=== PATIENT | female | born 1940 | race Caucasian/White ===

== ENCOUNTER → 2021-12-16 | Outpatient (REF) | payer SELFPAY ==
[2021-12-16 07:21] LABS: Mucous, Urine 0 SEEN /hpf (<or=2+)
[2021-12-16 08:01] LABS: Color, Urine Yellow (Yellow); Glucose, Dipstick Normal (Normal); Ketone-Dipstick 5 mg/dl (Negative); Leukocyte Esterase-Dipstick 500 /ul (Negative); Nitrite-Dipstick Negative (Negative); Occult Blood-Urine 250 /ul (Negative); Protein-Dipstick 100 mg/dl (Negative); Specific Gravity, Urine 1.025 (1.002-1.030); Urine Clarity Turbid (Clear); Urine Urobilinogen 1 mg/dl (Normal)
[2021-12-16 08:03] LABS: Urine Bilirubin Dipstick 1 mg/dL (Negative)
[2021-12-16 08:14] LABS: Bacteria 3+ /hpf (None Seen); Red Blood Cells-Urine 25-50 SEEN /hpf (0-5); Squamous Epithelial Cells - UA 0-5 SEEN /hpf (5-10); White Blood Cells 25-50 SEEN /hpf (0-5)
== END | disposition home or self-care (01) ==
LOC: OLS.SW400 03:00
PROVIDERS: Referring Provider Internal Medicine; Visit Provider Internal Medicine
DX: N39.0 Urinary tract infection, site not specified (principal)
CPT/HCPCS: 81001; 87077; 87086; 87088; 87186

== ENCOUNTER → 2021-12-17 | Outpatient (REF) | payer SELFPAY ==
[2021-12-17 08:44] LABS: Absolute Lymphocyte Count 1.19 X10^3/uL (0.83-4.51); Basophil# 0.05 X10^3/uL; Basophil% 0.7 % (0-1); Eosinophil# 0.36 X10^3/uL; Hematocrit 37.1 % (37-47); Lymphocyte # 1.19 X10^3/ul (0.83-4.51); Lymphocyte % 16.6 % (19-41); Mean Corp Hgb Conc 32.3 g/dL (32-36); Mean Corpuscular Hgb 30.2 pg (27.0-32.0); Mean Corpuscular Volume 93.5 fL (81-99); Mean Platelet Vol. 10.7 fl (6.2-12.0); Monocyte# 0.57 X10^3/uL; Monocyte% 7.9 % (0-10); NRBC Flagged by Analyzer 0 % (0-5); Neutrophil # 4.95 X10^3/uL (2.7-7.7); Neutrophil % 69.1 % (47-70); Platelet Count 177 K/mm3 (150-450); RBC Distribution Width CV 16.1 % (11.6-14.6); RBC Distribution Width SD 55.8 fl (35.1-43.9); Red Blood Count 3.97 M/mm3 (4.2-5.4); White Blood Count 7.2 K/mm3 (4.4-11.0)
[2021-12-17 08:56] LABS: Vitamin B12 206 pg/mL (211-911); Vitamin D,25 Hydroxy 10.3 ng/mL
[2021-12-17 09:04] LABS: Anion Gap 3 (5-15); BUN 14 mg/dL (7-18); BUN/Creat Ratio 16.1 RATIO (10-20); Calcium,Total 8.7 mg/dL (8.5-10.1); Chloride 109 mmol/L (98-107); Creatinine, Serum 0.87 mg/dL (0.55-1.02); EST Glomerular Filtration Rate 66 mL/min (>60); Est Glom Filt Rate - Afr Amer 80 mL/min (>60); Glucose 86 mg/dL (74-106); Potassium 3.9 mmol/L (3.5-5.1); Sodium Level 141 mmol/L (136-145); Thyroid Stim Hormone (TSH) 0.67 uIU/mL (0.358-3.74)
== END | disposition home or self-care (01) ==
LOC: OLS.SW400 05:00
PROVIDERS: Visit Provider Internal Medicine
DX: I10 Essential (primary) hypertension (principal); F03.90 Unspecified dementia, unspecified severity, without behavioral disturbance, psychotic disturbance, mood disturbance, and anxiety; I48.91 Unspecified atrial fibrillation; N39.0 Urinary tract infection, site not specified
CPT/HCPCS: 36415; 80048; 82306; 82607; 84443; 85025

== ENCOUNTER → 2022-01-09 | Outpatient (REF) | payer MEDICARE, OTHER, SELFPAY ==
[2022-01-09 14:05] LABS: Hematocrit 37.8 % (37-47); Hemoglobin 12.1 g/dL (12.0-15.0); Mean Corpuscular Hgb 30.2 pg (27.0-32.0); Mean Corpuscular Volume 94.3 fL (81-99); Mean Platelet Vol. 10.4 fl (6.2-12.0); Platelet Count 192 K/mm3 (150-450); RBC Distribution Width CV 16.6 % (11.6-14.6); RBC Distribution Width SD 57.1 fl (35.1-43.9); Red Blood Count 4.01 M/mm3 (4.2-5.4); White Blood Count 10.4 K/mm3 (4.4-11.0)
[2022-01-09 14:25] LABS: Anion Gap 5 (5-15); BUN 25 mg/dL (7-18); BUN/Creat Ratio 27.3 RATIO (10-20); Calcium,Total 8.9 mg/dL (8.5-10.1); Chloride 108 mmol/L (98-107); Creatinine, Serum 0.92 mg/dL (0.55-1.02); EST Glomerular Filtration Rate 63 mL/min (>60); Est Glom Filt Rate - Afr Amer 76 mL/min (>60); Glucose 164 mg/dL (74-106); Sodium Level 141 mmol/L (136-145)
[2022-01-10 06:40] LABS: Mucous, Urine 0 SEEN /hpf (<or=2+)
[2022-01-10 06:56] LABS: Color, Urine Brown (Yellow); Glucose, Dipstick Normal (Normal); Ketone-Dipstick 5 mg/dl (Negative); Leukocyte Esterase-Dipstick 500 /ul (Negative); Nitrite-Dipstick Positive (Negative); Occult Blood-Urine 250 /ul (Negative); Protein-Dipstick 100 mg/dl (Negative); Specific Gravity, Urine 1.025 (1.002-1.030); Urine Clarity Turbid (Clear); Urine Urobilinogen 1 mg/dl (Normal)
[2022-01-10 06:57] LABS: Urine Bilirubin Dipstick 1 mg/dL (Negative)
[2022-01-10 07:07] LABS: Bacteria 4+ /hpf (None Seen); Red Blood Cells-Urine > 100 SEEN /hpf (0-5); Squamous Epithelial Cells - UA 0-5 SEEN /hpf (5-10); White Blood Cells >100 SEEN /hpf (0-5)
== END | disposition home or self-care (01) ==
LOC: OLS.SW400 13:20
PROVIDERS: Visit Provider Internal Medicine
DX: R53.83 Other fatigue (principal); N39.0 Urinary tract infection, site not specified
CPT/HCPCS: 36415; 80048; 81001; 85027; 87077; 87086; 87088; 87186

== ENCOUNTER → 2022-02-25 | Outpatient (REF) | payer MEDICARE, OTHER, SELFPAY ==
[2022-02-25 07:18] LABS: Prealbumin 7.9 mg/dL (20.0-40.0)
== END | disposition home or self-care (01) ==
LOC: OLS.SW400 05:00
PROVIDERS: Visit Provider Internal Medicine
DX: I10 Essential (primary) hypertension (principal); F03.90 Unspecified dementia, unspecified severity, without behavioral disturbance, psychotic disturbance, mood disturbance, and anxiety; I48.91 Unspecified atrial fibrillation; E53.9 Vitamin B deficiency, unspecified
CPT/HCPCS: 36415; 84134

== ENCOUNTER → 2022-03-26 | Outpatient (REF) | payer MEDICARE, OTHER, SELFPAY ==
[2022-03-26 09:51] LABS: Color, Urine Yellow (Yellow); Glucose, Dipstick Normal (Normal); Ketone-Dipstick Negative (Negative); Leukocyte Esterase-Dipstick 500 /ul (Negative); Nitrite-Dipstick Negative (Negative); Occult Blood-Urine 25 /ul (Negative); Protein-Dipstick 30 mg/dl (Negative); Specific Gravity, Urine 1.015 (1.002-1.030); Urine Bilirubin Dipstick Negative (Negative); Urine Clarity Sl. Cloudy (Clear); Urine Urobilinogen 1 mg/dl (Normal); Urine pH 6.5 (5.0 - 8.0)
[2022-03-26 09:58] LABS: Bacteria 2+ /hpf (None Seen); Mucous, Urine 1+ /hpf (<or=2+); Red Blood Cells-Urine 0-5 SEEN /hpf (0-5); Squamous Epithelial Cells - UA 0-5 SEEN /hpf (5-10); White Blood Cells 25-50 SEEN /hpf (0-5)
== END | disposition home or self-care (01) ==
LOC: OLS.SW400 07:10
PROVIDERS: Visit Provider Internal Medicine
DX: R41.0 Disorientation, unspecified (principal); F22 Delusional disorders; Z79.899 Other long term (current) drug therapy
CPT/HCPCS: 81001; 87077; 87086; 87088; 87186

== ENCOUNTER 2022-12-01 14:08 | Inpatient (IN) | payer MEDICARE, OTHER, MEDICAID, SELFPAY ==
[2022-12-01] VITALS (11 sets, daily range): BP systolic 61–115; BP diastolic 34–79; PULSE 75–88; RESP 14–28; TEMP 36.6; O2SAT 85–97; BMI 21.7; BMI 22.6
--- NOTE | 2022-12-01 14:21 | CT_ITS ---
STUDY: CT BRAIN WITHOUT CONTRAST REASON FOR EXAM: Female, 82 years old. ams. Patient is unresponsive. RADIATION DOSAGE (If Supplied By Facility): CTDIvol = ( 44.99 ) mGy, DLP = ( 829.85 ) mGycm TECHNIQUE: Transaxial CT imaging of the brain was performed without administration of intravenous contrast material. Individualized dose optimization techniques were used for this CT. COMPARISON: No relevant priors. FINDINGS: Normal soft tissue structures. Normal calvarium. There is mild cerebral atrophy with widening of the extra-axial spaces and ventricular dilatation. There are areas of decreased attenuation within the white matter tracts of the supratentorial brain, consistent with microvascular disease changes. Normal basal ganglia and thalami. Normal brainstem. Normal cerebellum. There is no intracranial hemorrhage. There are no findings of an acute ischemic infarction. Atherosclerotic plaque formation of the cavernous portions of the internal carotid arteries bilaterally. Normal visualized paranasal sinuses. CT/Brain/Head without Contrast IMPRESSION: Chronic involutional changes of the brain. Electronically Signed: Rajesh Grijalva MD at 15:16 EST ,
--- NOTE | 2022-12-01 14:21 | EKG12_ITS ---
Test Reason : Blood Pressure : / mmHG Vent. Rate : 077 BPM Atrial Rate : 326 BPM P-R Int : 000 ms QRS Dur : 090 ms QT Int : 432 ms P-R-T Axes : 000 053 008 degrees QTc Int : 488 ms Atrial fibrillation /flutter with variable A-V block Low voltage QRS (Limb Leads) Abnormal ECG Confirmed by CAROLINE BRADLEY, NENITA ([id number]), editor managing director DENIZ SCHULER ([id number]) on 12/02/2022 10:21:10 AM Referred By: RHETT/HONG Confirmed By:NENITA VELAZQUEZ MD
--- NOTE | 2022-12-01 14:24 | NURSING ---
NO OLD EKGS
[2022-12-01] MEDS: 0.9% Normal Saline 1,000 ML 999 ML IV ×2 (14:28→14:41)
--- NOTE | 2022-12-01 14:37 | EX.ED.DYSGE1 ---
HPI History of Present Illness Chief Complaint: Unresponsive Narrative Narrative: 82-year-old female with history of dementia presents from the long term unresponsive. Per report patient has only been this way today. I am unable to obtain history from her. Reported history of dementia. PFSH PFSH Home Medications diltiazem HCl 60 mg tablet 60 mg PO 4X/DAY HTN 12/01/22 [History Last Taken 12/01/22] gabapentin 100 mg capsule 100 mg PO BID PAIN 12/01/22 [History Last Taken 12/01/22] hydrocodone-acetaminophen 5-325mg 5mg-325mg 1 tab PO BID PAIN 12/01/22 [History Last Taken 12/01/22] magnesium hydroxide 400 mg/5 mL oral suspension (Milk of Magnesia) 30 ml PO DAILY PRN Constipation 12/01/22 [History Last Taken 11/27/22] melatonin 3 mg tablet 3 mg PO QHS INSOMNIA 12/01/22 [History Last Taken 11/30/22] metoprolol tartrate 50 mg tablet 50 mg PO BID HTN 12/01/22 [History Last Taken 12/01/22] mirtazapine 7.5 mg tablet 7.5 mg PO QHS APPETITE 12/01/22 [History Last Taken 11/30/22] morphine concentrate 20 mg/mL oral syringe (FOR ORAL USE ONLY) 10 mg PO Q2H PRN PAIN/DYSPNEA 12/01/22 [History Last Taken 12/01/22] nitrofurantoin monohydrate/macrocrystals 100 mg capsule 100 mg PO DAILY PROPHYLAXIS 12/01/22 [History Last Taken 12/01/22] polyethylene glycol 3350 17 gram/dose oral powder 17 g PO DAILY CONSTIPATION 12/01/22 [History Last Taken 12/01/22] sennosides 8.6 mg tablet (Senna Laxative) 8.6 mg PO BID CONSTIPATION 12/01/22 [History Last Taken 12/01/22] sertraline 100 mg tablet (Zoloft) 100 mg PO DAILY DEPRESSION 12/01/22 [History Last Taken 12/01/22] Allergy/AdvReac Type Severity Reaction Status Date / Time lactose [lactose intolerant] AdvReac Diarrhea Verified 12/01/22 14:09 Social History Smoking Status: Never smoker ROS ROS ED Review of Systems ROS Unobtainable: due to mental status EXAM Physical Exam Const Vital Signs: 12/01/22 14:10 12/01/22 14:19 12/01/22 14:21 Temperature 97.8 F Temperature Source Temporal Pulse Rate 77 Respiratory Rate 14 Blood Pressure 72/54 L 65/47 L Blood Pressure Mean 60 53 Pulse Ox 85 95 Oxygen Delivery Method Room Air Nasal Cannula Oxygen Flow Rate (L/min) 4 12/01/22 15:26 12/01/22 15:31 Temperature 97.9 F 97.8 F Temperature Source Core Core Pulse Rate 75 81 Respiratory Rate 23 H 22 H Blood Pressure 73/64 L 61/34 L Blood Pressure Mean 67 43 Pulse Ox 92 94 Oxygen Delivery Method Nasal Cannula Nasal Cannula Oxygen Flow Rate (L/min) 4 4 Positive unkempt General Appearance ED: unkempt HEENT Reports dry mucous membranes Mouth ED: Yes dry mucous membranes Mouth: dry mucous membranes Eyes PERRL and EOMs intact bilaterally General Eye ED: Negative for pale conjunctiva or scleral icterus Chest Wall inspection of chest normal Resp normal respiratory effort and clear to auscultation bilaterally Auscultation: Negative for rales, rhonchi or wheezes Cardio regular rate and regular rhythm GI normal to inspection, nondistended, normoactive bowel sounds Back/Spine no CVA tenderness Neuro Neuro Narrative: Confused. Psych Appearance: unkempt Skin no rashes or lesions noted Sepsis Attestation Sepsis Alert: Yes Sepsis Attestation: Agree w/Sepsis Date exam was performed: 12/01/22 Possible Source of Sepsis: Pulmonary and Genitourinary Sepsis Organ Dysfunction Criteria Present: SBP < 90 mmHg or MAP < 65 mmHg, Creatinine > 2.0 mg/dL and New/Unexplained change in mental status Fluid Resuscitation Fluid resuscitation indicated?: Yes Fluid Resuscitation ordered: 30 ml/kg fluid bolus ordered Sepsis Note Sepsis Attestation: Sepsis re-evaluation was performed Response to fluids: Fluid responsive hypotension MDM MDM MDM Narrative Medical decision making narrative: 82-year-old female with history of dementia presents unresponsive. I did try to place a call to her son who is her POA however he go straight to voicemail and his mailbox is full. I did call his daughter after this Marie Govea. She states that her mother has been complaining of pain in her lower back for about 3 weeks. She has been telling long term that she likely has a UTI and she presents with UTI typically. She reports that the patient has been getting [place] twice a day for pain in her back. They have not tested her urine. Does report that the patient is in hospice but this is mainly to manage her medications. He states that her brother is the POA and he has been seeing her every weekend and she has not been able to do much. She is not really responsive. She has been losing a lot of weight. Differential diagnosis here is broad as the patient is unresponsive. She has no history of intracranial hemorrhage, A-fib, UTI. Also included in the differential is pneumonia, sepsis, opioid overdose, ACS, COVID, influenza. COVID and influenza swabs are sent. CBC to assess white blood cell count, hemoglobin, differential. CMP to assess liver function, renal function, electrolytes, glucose, anion gap. Urinalysis to assess for UTI. Lactic acid, coagulation studies appropriate for septic work-up. Patient given 2 L of IV fluids that she presents hypotensive. Her blood pressure 72/54. I am unsure of her baseline. Was 85% on room air and she is placed on 4 L nasal cannula and is stable at this point. Chest x-ray to assess for pneumonia. Patient was pancultured. After speaking with her daughter her daughter does not want anything invasive. She does not want her to have CPR or be intubated. No extreme measures. She is going to call her brother and they are going to come to the emergency room. For now she is getting IV fluids. I did see her urine as they placed a [place] catheter in her and this is purulent. Patient is given a dose of Rocephin immediately. We will continue to monitor her blood pressure. Patient given initial bolus of 2 L of IV fluids. Her pressure has come up. After speaking with the patient's daughter it appears she was getting [place] at the long term and this was what was making her unresponsive. She was given 1 mg of Narcan and she woke up. Her blood pressure also came up a little more. She was given an additional 500 cc of normal saline and started a rate of 125 an hour. Her blood pressure now is 101/64 which is reassuring. Her daughter does not want any extreme measures such as intubation, central line, CPR. CBC shows a slight leukocytosis at 11.7. Hemoglobin and hematocrit are normal. Platelets within normal limits. There is a left shift. PT slightly prolonged at 15.4 however INR and APTT are normal. Creatinine acutely elevated at 2.79, GFR 17 this is likely why the patient is hypotensive in addition to infection. Electrolytes appear to be within normal limits. Glucose 138 without anion gap. CO2 is normal. Lactic acid returned at 2.0. Urinalysis did in fact come back consistent with UTI. Chest x-ray on my interpretation shows pneumonia bilaterally. This is worse on the right. Radiologist interpretation agrees. Patient is now alert and talking complaining of lower back pain. She is still little confused. I did give her Tylenol and a Lidoderm patch. I will obtain x-rays of the lumbar spine as well. Discussed with the hospitalist for admission. It is a lumbar spine negative for acute fracture or subluxation. There are indications that there is chronic degenerative changes. Radiologist are persistent agrees Impression: 1. Bilateral pneumonia 2. Urinary tract infection 3. Hypotension?resolved 4. Opioid overdose 5. Back pain Lab Data Attestation: I reviewed the patient's lab results. Labs: Laboratory Results - last 24 hr 12/01/22 12/01/22 12/01/22 14:10 14:10 14:10 WBC 11.7 H RBC 4.06 L Hgb 12.4 Hct 38.8 MCV 95.6 MCH 30.5 MCHC 32.0 RDW Std Deviation 49.9 H RDW Coeff of Lucretia 14.2 Plt Count 245 MPV 10.8 Immature Gran % (Auto) 0.400 Neut % (Auto) 80.1 H Lymph % (Auto) 9.9 L [place] % (Auto) 8.8 Eos % (Auto) 0.5 Baso % (Auto) 0.3 Absolute Neuts (auto) 9.4 H Absolute Lymphs (auto) 1.15 Nucleated RBC % 0 PT 15.4 H INR 1.3 APTT 28.5 Sodium 144 Potassium 4.6 Chloride 112 H Carbon Dioxide 25.0 Anion Gap 7 BUN 55 H Creatinine 2.79 H Estim Creat Clear Calc 15.12 Est GFR (MDRD) Af Amer 21 L Est GFR (MDRD) Non-Af 17 L BUN/Creatinine Ratio 19.7 Glucose 138 H Lactic Acid Calcium 9.0 Total Bilirubin 0.60 AST 124 H ALT 68 H Alkaline Phosphatase 76 Total Protein 7.6 Albumin 2.7 L Globulin 4.9 H Albumin/Globulin Ratio 0.6 L Urine Color Urine Clarity Urine pH Ur Specific [place] Urine Protein Urine Glucose (UA) Urine Ketones Urine Occult Blood Urine Nitrite Urine Bilirubin Urine Urobilinogen Ur Leukocyte Esterase Urine RBC Urine WBC Ur Squamous Epith Cells Urine Bacteria Urine Mucus 12/01/22 12/01/22 14:10 14:40 WBC RBC Hgb Hct MCV MCH MCHC RDW Std Deviation RDW Coeff of Lucretia Plt Count MPV Immature Gran % (Auto) Neut % (Auto) Lymph % (Auto) [place] % (Auto) Eos % (Auto) Baso % (Auto) Absolute Neuts (auto) Absolute Lymphs (auto) Nucleated RBC % PT INR APTT Sodium Potassium Chloride Carbon Dioxide Anion Gap BUN Creatinine Estim Creat Clear Calc Est GFR (MDRD) Af Amer Est GFR (MDRD) Non-Af BUN/Creatinine Ratio Glucose Lactic Acid 2.0 Calcium Total Bilirubin AST ALT Alkaline Phosphatase Total Protein Albumin Globulin Albumin/Globulin Ratio Urine Color Yellow Urine Clarity Turbid Urine pH 5.0 Ur Specific [place] 1.025 Urine Protein 30 H Urine Glucose (UA) Normal Urine Ketones 5 H Urine Occult Blood 150 H Urine Nitrite Positive H Urine Bilirubin 3 H Urine Urobilinogen 4 H Ur Leukocyte Esterase 500 H Urine RBC 10-25 SEEN Urine WBC 0-5 SEEN Ur Squamous Epith Cells 0-5 SEEN Urine Bacteria 3+ Urine Mucus 0 SEEN Radiography Diagnostic Testing: Clinical Impression(s) from Imaging Studies Brain CT 12/01/22 14:21 IMPRESSION: Chronic involutional changes of the brain. Electronically Signed: Rajesh Grijalva MD at 15:16 EST , Chest X-Ray 12/01/22 14:55 IMPRESSION: Diffuse bilateral pulmonary infiltrates worse in the right hemithorax. Follow-up recommended. Electronically Signed: Rajesh Grijalva MD at 15:16 EST , Discharge Plan Disposition Disposition: Acute Care Hospital [facility] Discharge Date/Time: 12/01/22 16:52
[2022-12-01 14:46] LABS: Mucous, Urine 0 SEEN /hpf (<or=2+)
[2022-12-01 14:51] LABS: Color, Urine Yellow (Yellow); Glucose, Dipstick Normal (Normal); Ketone-Dipstick 5 mg/dl (Negative); Leukocyte Esterase-Dipstick 500 /ul (Negative); Nitrite-Dipstick Positive (Negative); Occult Blood-Urine 150 /ul (Negative); Protein-Dipstick 30 mg/dl (Negative); Specific Gravity, Urine 1.025 (1.002-1.030); Urine Clarity Turbid (Clear); Urine Urobilinogen 4 mg/dl (Normal)
[2022-12-01 14:51] LABS: Absolute Lymphocyte Count 1.15 X10^3/uL (0.83-4.51); Absolute Neutrophil Count 9.4 X10^3/uL (2.0-7.7); Basophil# 0.03 X10^3/uL; Basophil% 0.3 % (0-1); Eosinophil# 0.06 X10^3/uL; Eosinophils% 0.5 % (0-5); Hematocrit 38.8 % (37-47); Hemoglobin 12.4 g/dL (12.0-15.0); Lymphocyte # 1.15 X10^3/ul (0.83-4.51); Lymphocyte % 9.9 % (19-41); Mean Corpuscular Hgb 30.5 pg (27.0-32.0); Mean Corpuscular Volume 95.6 fL (81-99); Mean Platelet Vol. 10.8 fl (6.2-12.0); Monocyte# 1.03 X10^3/uL; Monocyte% 8.8 % (0-10); NRBC Flagged by Analyzer 0 % (0-5); Neutrophil # 9.35 X10^3/uL (2.7-7.7); Neutrophil % 80.1 % (47-70); Platelet Count 245 K/mm3 (150-450); RBC Distribution Width CV 14.2 % (11.6-14.6); RBC Distribution Width SD 49.9 fl (35.1-43.9); Red Blood Count 4.06 M/mm3 (4.2-5.4); White Blood Count 11.7 K/mm3 (4.4-11.0)
[2022-12-01 14:54] LABS: Urine Bilirubin Dipstick 3 mg/dL (Negative)
--- NOTE | 2022-12-01 14:55 | RAD_ITS ---
STUDY: X-RAY CHEST REASON FOR EXAM: Female, 82 years old. Weakness TECHNIQUE: Single AP portable view of the chest. COMPARISON: None. FINDINGS: EKG electrodes are seen. Diffuse bilateral pulmonary infiltrates worse in the right hemithorax. Blunting of both lateral angles. Normal size heart. Normal mediastinum and jose francisco. Normal visualized pulmonary arteries. There is atherosclerotic calcification of the aortic arch with tortuosity. There are degenerative changes of the visualized thoracic spine. Normal visualized ribs, clavicles, and shoulders. There is no demonstrated abnormality of the visualized soft tissue structures of the upper abdomen. RAD/Chest 1 View (Portable) IMPRESSION: Diffuse bilateral pulmonary infiltrates worse in the right hemithorax. Follow-up recommended. Electronically Signed: Rajesh Grijalva MD at 15:16 EST ,
[2022-12-01 14:56] LABS: Bacteria 3+ /hpf (None Seen); Red Blood Cells-Urine 10-25 SEEN /hpf (0-5); Squamous Epithelial Cells - UA 0-5 SEEN /hpf (5-10)
[2022-12-01 14:57] LABS: White Blood Cells 0-5 SEEN /hpf (0-5)
[2022-12-01] MEDS: Ceftriaxone 1 GM/50 ML BAG IV (15:02)
[2022-12-01 15:05] LABS: International Normalized Ratio 1.3; Partial Thromboplast Time 28.5 Seconds (24.1-36.2); Prothrombin Time (Protime)PT. 15.4 SECONDS (11.7-14.9)
[2022-12-01 15:06] LABS: ALB/GLOB Ratio 0.6 RATIO (0.9-2.4); AST(SGOT) 124 U/L (15-37); Alanine Aminotransfer ALT/SGPT 68 U/L (13-56); Albumin, Serum 2.7 g/dL (3.2-5.0); Alkaline Phosphatase 76 U/L (45-117); Anion Gap 7 (5-15); BUN 55 mg/dL (7-18); BUN/Creat Ratio 19.7 RATIO (10-20); Chloride 112 mmol/L (98-107); Creatinine, Serum 2.79 mg/dL (0.55-1.02); EST Glomerular Filtration Rate 17 mL/min (>60); Est Glom Filt Rate - Afr Amer 21 mL/min (>60); Estimated Creatinine Clearance 15.12 ml/min; Globulin 4.9 g/dL (2.2-4.2); Glucose 138 mg/dL (74-106); Potassium 4.6 mmol/L (3.5-5.1); Protein, Total 7.6 g/dL (6.4-8.2); Sodium Level 144 mmol/L (136-145)
[2022-12-01] MEDS: Naloxone 2 MG/2 ML Syringe 1 MG IV (15:13)
--- NOTE | 2022-12-01 15:21 | ED.RN ---
PT GIVEN NARCAN PER ORDER. A FEW MINUTES LATER, PT REPSONDS TO NAME AND OPENS EYES WHEN ASKED. DR MORENO AWARE
[2022-12-01] MEDS: 0.9% Normal Saline 1,000 ML 125 ML IV (15:25)
--- NOTE | 2022-12-01 15:36 | HP.PCM.HOS_ITS ---
HPI - General General Date of Admission: 12/01/22 Date of Service: 12/01/22 Chief Complaint: Altered mental status - 3 weeks HPI Narrative PILI HU, is a 82 F who presents with the above. Patient is an 82-year-old female with a past medical history of severe vascular dementia with behavioral disturbances, resident in [facility]. Patient has history of recurrent UTIs and is on chronic nitrofurantoin. History was obtained from her daughter and son. Her son is a power of warehouse shift supervisor for health. Patient was noted to be lethargic over the last 3 weeks. Family stated that over the last 1 to 2 weeks, hospice was consulted for patient for medication management. It is unclear if it was for palliative reasons or not. They think that over the last 1 week, her medications were changed around. Patient was found to be more obtunded and brought to the emergency room. Per daughter, mother has been complaining of low back pain ongoing for 3 weeks. This is usually representation when she has a urinary tract infection. She however was getting [place] twice a day for back pain. On initial presentation to the emergency room, patient was unresponsive. Patient was given 1 mg of Narcan and she woke up and was interactive, responsive to name but easily goes back to sleep. Ocampo catheter placed showed purulent, brownish urine. Patient did receive IV fluids and was started on IV Rocephin. Initial blood pressure in the ED was 72/54, heart rate was 77, respiratory rate was 14, temperature of 97.8 F, oxygen sat was 85% on 4 L of oxygen. A WBC count was 11.7, hemoglobin 12.4, platelet count 245, INR 1.3, sodium 144, potassium 4.6, chloride 112, bicarbonate 25, BUN 55, creatinine 2.79, previous creatinine of a year ago was 0.92. LFT showed AST 124, ALT 68, albumin 2.7. UA is turbid, nitrite positive, ketones positive, leukocyte esterase 500 bacteria 3+ X-ray of the spine showed degenerative changes. Chest x-ray showed diffuse bilateral pulmonary infiltrates, worse in her right hematuria. Brain CT showed chronic involutional changes. [facility] Medical History (Updated 12/01/22 @ 21:[address] Reina Donis MD) Anxiety CVA (cerebral vascular accident) Dementia Depression Paroxysmal atrial fibrillation Medical History unable to obtain Home Medications diltiazem HCl 60 mg tablet 60 mg PO 4X/DAY HTN 12/01/22 [History Last Taken 12/01/22] gabapentin 100 mg capsule 100 mg PO BID PAIN 12/01/22 [History Last Taken 12/01/22] hydrocodone-acetaminophen 5-325mg 5mg-325mg 1 tab PO BID PAIN 12/01/22 [History Last Taken 12/01/22] magnesium hydroxide 400 mg/5 mL oral suspension (Milk of Magnesia) 30 ml PO DAILY PRN Constipation 12/01/22 [History Last Taken 11/27/22] melatonin 3 mg tablet 3 mg PO QHS INSOMNIA 12/01/22 [History Last Taken 11/30/22] metoprolol tartrate 50 mg tablet 50 mg PO BID HTN 12/01/22 [History Last Taken 12/01/22] mirtazapine 7.5 mg tablet 7.5 mg PO QHS APPETITE 12/01/22 [History Last Taken 11/30/22] morphine concentrate 20 mg/mL oral syringe (FOR ORAL USE ONLY) 10 mg PO Q2H PRN PAIN/DYSPNEA 12/01/22 [History Last Taken 12/01/22] nitrofurantoin monohydrate/macrocrystals 100 mg capsule 100 mg PO DAILY PROPHYLAXIS 12/01/22 [History Last Taken 12/01/22] polyethylene glycol 3350 17 gram/dose oral powder 17 g PO DAILY CONSTIPATION 12/01/22 [History Last Taken 12/01/22] sennosides 8.6 mg tablet (Senna Laxative) 8.6 mg PO BID CONSTIPATION 12/01/22 [History Last Taken 12/01/22] sertraline 100 mg tablet (Zoloft) 100 mg PO DAILY DEPRESSION 12/01/22 [History Last Taken 12/01/22] Allergy/AdvReac Type Severity Reaction Status Date / Time lactose [lactose intolerant] AdvReac Diarrhea Verified 12/01/22 14:09 Family History unable to obtain unable to obtain Surgical History unable to obtain unable to obtain Social History (Updated 12/01/22 @ 19:[address] Reina Donis MD) [facility] Smoking Status: Never smoker alcohol intake: never substance use type: does not use ROS Review of Systems ROS Unobtainable: due to encephalopathy Vital Signs Vital Signs Vital Signs: 12/01/22 14:10 12/01/22 14:19 12/01/22 14:21 Temperature 97.8 F Temperature Source Temporal Pulse Rate 77 Respiratory Rate 14 Blood Pressure 72/54 L 65/47 L Blood Pressure Mean 60 53 Pulse Ox 85 95 Oxygen Delivery Method Room Air Nasal Cannula Oxygen Flow Rate (L/min) 4 12/01/22 15:26 12/01/22 15:31 12/01/22 15:36 Temperature 97.9 F 97.8 F Temperature Source Core Core Pulse Rate 75 81 Respiratory Rate 23 H 22 H Blood Pressure 73/64 L 61/34 L 101/64 Blood Pressure Mean 67 43 76 Pulse Ox 92 94 Oxygen Delivery Method Nasal Cannula Nasal Cannula Oxygen Flow Rate (L/min) 4 4 Weight Weight: 63 kg Body Mass Index (BMI) 21.7 Physical Exam Narrative Physical exam: General: Lethargic, confused, not oriented to person, place or time, on 4 L of oxygen, cachectic HEENT: Atraumatic Oral: Dry mucosa Neck: Supple Lungs: Diminished to auscultation Cardiovascular: HS I+II, regular, no murmurs Abdomen: Bowel Sounds Present, Soft, Non Tender Extremities: No edema Skin: No rashes, No breakdown Neurological: Grossly intact Psych/Mental Status: Appropriate Results Lab / Micro Data Result Diagrams: 12/01/22 14:10 12/01/22 14:10 Labs: Laboratory Results - last 24 hr 12/01/22 14:10: WBC 11.7 H, RBC 4.06 L, Hgb 12.4, Hct 38.8, MCV 95.6, MCH 30.5, MCHC 32.0, RDW Std Deviation 49.9 H, RDW Coeff of Lucretia 14.2, Plt Count 245, MPV 10.8, Immature Gran % (Auto) 0.400, Neut % (Auto) 80.1 H, Lymph % (Auto) 9.9 L, [place] % (Auto) 8.8, Eos % (Auto) 0.5, Baso % (Auto) 0.3, Absolute Neuts (auto) 9.4 H, Absolute Lymphs (auto) 1.15, Nucleated RBC % 0 12/01/22 14:10: PT 15.4 H, INR 1.3, APTT 28.5 12/01/22 14:10: Sodium 144, Potassium 4.6, Chloride 112 H, Carbon Dioxide 25.0, Anion Gap 7, BUN 55 H, Creatinine 2.79 H, Estim Creat Clear Calc 15.12, Est GFR (MDRD) Af Amer 21 L, Est GFR (MDRD) Non-Af 17 L, BUN/Creatinine Ratio 19.7, Glucose 138 H, Calcium 9.0, Total Bilirubin 0.60, AST 124 H, ALT 68 H, Alkaline Phosphatase 76, Total Protein 7.6, Albumin 2.7 L, Globulin 4.9 H, Albumin/Globulin Ratio 0.6 L 12/01/22 14:10: Lactic Acid 2.0 12/01/22 14:40: Urine Color Yellow, Urine Clarity Turbid, Urine pH 5.0, Ur Specific [place] 1.025, Urine Protein 30 H, Urine Glucose (UA) Normal, Urine Ketones 5 H, Urine Occult Blood 150 H, Urine Nitrite Positive H, Urine Bilirubin 3 H, Urine Urobilinogen 4 H, Ur Leukocyte Esterase 500 H, Urine RBC 10-25 SEEN, Urine WBC 0-5 SEEN, Ur Squamous Epith Cells 0-5 SEEN, Urine Bacteria 3+, Urine Mucus 0 SEEN Radiology Impression Brain CT 12/01/22 14:21 IMPRESSION: Chronic involutional changes of the brain. Electronically Signed: Rajesh Grijalva MD at 15:16 EST , Chest X-Ray 12/01/22 14:55 IMPRESSION: Diffuse bilateral pulmonary infiltrates worse in the right hemithorax. Follow-up recommended. Electronically Signed: Rajesh Grijalva MD at 15:16 EST , Assessment & Plan Assessment/Plan (1) Acute metabolic encephalopathy: PLAN: Plan 1. Acute metabolic/infectious/toxic encephalopathy secondary to UTI/JIMMY/narcotic use Patient is lethargic/confused, will monitor mentation Hold narcotics, melatonin, gabapentin We will anticipate acute delirium 2. Acute UTI, suspected gram-negative, history of recurrent UTIs Patient [facility]; unsure if she was able to take it Started on IV ceftriaxone; will switch to IV Zosyn Follow-up on urine cultures 3. Probable acute pneumonia, suspected aspiration pneumonia Chest x-ray showed bilateral infiltrates, worse on the right hemithorax We will continue on IV Zosyn 4. Acute hypoxia secondary to #3, currently on 4L of oxygen Will wean off for spO2>94% 5. JIMMY, likely prerenal from #2 dehydration Admitted with Cr 2.79, prev of 0.92 Continue with IVF, kidney/bladder USG Repeat labs in am 6. Chronic back pain, lumbar spine X-ray shows degenerative changes Will continue on scheduled Tylenol, lidoderm patches, prn oxycodone 7. DVT PPx- Heparin SC I discussed and explained in details the various types of CODE STATUS-full code, DNR CCA, DNR CC with patient's daughter and son. They stated that they do not want any aggressive/heroic measures. They chose DNR CCA, no intubation. Time spent discussing CODE STATUS 18 minutes Charges/Coding Addendum Addendum: Total time spent: 80 minutes of which more > 50% was spent in reviewing patient's chart, laboratory investigations, imaging, discussing with emergency physician, taking history and physical examining patient and going over plan of care with patient's daughter and son at the bedside. Visit Charges Inpatient E&M: 91008 Init Hosp L3 Procedures Hospitalists Procedures: 24769 Advncd Care Plan 30 Min
--- NOTE | 2022-12-01 15:57 | NURSING ---
MED SURG NUAMAH UTI, PNA, HYPOTENSION
[2022-12-01] MEDS: Lidocaine 5% Patch 1 PATCH TOPICAL (16:26)
--- NOTE | 2022-12-01 16:30 | RAD_ITS ---
STUDY: X-RAY - LUMBAR SPINE REASON FOR EXAM: Female, 82 years old. back pain TECHNIQUE: XR Spine Lumbar 2 or 3 Views COMPARISON: None FINDINGS: Normal lumbar lordosis. There is no substantial scoliosis. There is a normal alignment of the vertebrae. There is multilevel endplate spondylosis of the lumbar vertebrae. There is multi-level degenerative disc disease with multi-level disc space narrowing. There are atherosclerotic vascular calcifications. The soft tissue structures are unremarkable. RAD/Lumbar Spine 2 or 3 Views IMPRESSION: Degenerative changes of the spine, as detailed above. Electronically Signed: Chris Lam MD at 17:21 EST ,
--- NOTE | 2022-12-01 16:53 | US_ITS ---
STUDY: RENAL ULTRASOUND - COMPLETE REASON FOR EXAM: Female, 82 years old. Recurrent UTI TECHNIQUE: Ultrasound evaluation of the kidneys was performed with real-time and static morillo-scale imaging. COMPARISON: None. FINDINGS: RIGHT KIDNEY: Normal location of the right kidney, which is normal in size. The right kidney measures 12.3 cm. There is a normal cortex of the right kidney. The renal cortex measures 1.1 cm. There is no right renal mass or cyst. There are no right renal calculi. There is no right hydronephrosis. DISTAL RIGHT URETER: There is non-visualization of the distal right ureter. There is no demonstrated right ureterovesical junction calculus. There is a visualized right ureteral jet. LEFT KIDNEY: Normal location of the left kidney, which is normal in size. The left kidney measures 11.2 cm. There is a normal cortex of the left kidney. The renal cortex measures 1.4 cm. There is no left renal mass or cyst. There are no left renal calculi. There is no left hydronephrosis. DISTAL LEFT URETER: There is non-visualization of the distal left ureter. There is no demonstrated left ureterovesical junction calculus. There is a visualized left ureteral jet. BLADDER: [place]camp[place] catheter in collapsed bladder.. Incidentally noted are gallstones but gallbladder consistent with cholelithiasis. There is gallbladder wall thickening but there is ascites. US/Kidney and Bladder IMPRESSION: Normal ultrasound of the kidneys. Electronically Signed: Nehemiah Richards MD at 20:30 EST ,
[2022-12-01 18:43] LABS: Reflex Lactate? Y
[2022-12-01 20:00] LABS: Lactic Acid 2.8 mmol/L (0.4-1.9)
[2022-12-01] MEDS: Lactated Ringers 1,000 ML 75 ML IV (20:07)
[2022-12-01] MEDS: Heparin Injection (Vial) 5,000 UNIT/ML VIAL 5000 UNIT SC (20:39)
[2022-12-02] VITALS (11 sets, daily range): BP systolic 85–116; BP diastolic 53–68; PULSE 80–127; RESP 16–20; TEMP 36.7–38.1; O2SAT 87–95
[2022-12-02 04:48] LABS: Absolute Lymphocyte Count 1.46 X10^3/uL (0.83-4.51); Absolute Neutrophil Count 9.2 X10^3/uL (2.0-7.7); Basophil# 0.04 X10^3/uL; Basophil% 0.3 % (0-1); Eosinophil# 0.09 X10^3/uL; Eosinophils% 0.8 % (0-5); Hematocrit 40.3 % (37-47); Hemoglobin 11.4 g/dL (12.0-15.0); Lymphocyte # 1.46 X10^3/ul (0.83-4.51); Lymphocyte % 12.3 % (19-41); Mean Corp Hgb Conc 28.3 g/dL (32-36); Mean Corpuscular Hgb 29.2 pg (27.0-32.0); Mean Corpuscular Volume 103.3 fL (81-99); Mean Platelet Vol. 10.8 fl (6.2-12.0); Monocyte# 0.97 X10^3/uL; Monocyte% 8.2 % (0-10); NRBC Flagged by Analyzer 0.3 % (0-5); Neutrophil # 9.16 X10^3/uL (2.7-7.7); Neutrophil % 77.4 % (47-70); Platelet Count 207 K/mm3 (150-450); RBC Distribution Width CV 14.5 % (11.6-14.6); RBC Distribution Width SD 54.9 fl (35.1-43.9); White Blood Count 11.8 K/mm3 (4.4-11.0)
[2022-12-02] MEDS: Heparin Injection (Vial) 5,000 UNIT/ML VIAL 5000 UNIT SC ×3 (05:05→21:38)
[2022-12-02 05:16] LABS: ALB/GLOB Ratio 0.5 RATIO (0.9-2.4); AST(SGOT) 71 U/L (15-37); Alanine Aminotransfer ALT/SGPT 51 U/L (13-56); Albumin, Serum 2.2 g/dL (3.2-5.0); Alkaline Phosphatase 74 U/L (45-117); Anion Gap 7 (5-15); BUN 52 mg/dL (7-18); BUN/Creat Ratio 21.9 RATIO (10-20); Calcium,Total 8.1 mg/dL (8.5-10.1); Chloride 116 mmol/L (98-107); Creatinine, Serum 2.37 mg/dL (0.55-1.02); EST Glomerular Filtration Rate 21 mL/min (>60); Est Glom Filt Rate - Afr Amer 25 mL/min (>60); Globulin 4.4 g/dL (2.2-4.2); Glucose 95 mg/dL (74-106); Potassium 4.3 mmol/L (3.5-5.1); Protein, Total 6.6 g/dL (6.4-8.2); Sodium Level 146 mmol/L (136-145)
[2022-12-02 05:28] LABS: Lactic Acid 1.3 mmol/L (0.4-1.9)
[2022-12-02] MEDS: Lactated Ringers 1,000 ML 75 ML IV (09:04)
[2022-12-02] MEDS: Lidocaine 5% Patch 2 PATCH TOPICAL (09:30)
--- NOTE | 2022-12-02 11:48 | WOUNDNOTE ---
patient has slight redness to buttocks. orders received for calmoseptine. patient also has small area of patchy red rash to the right axilla. orders received for Nystatin powder. Daughter present in room. states how long do you think that was there? We are already [facility]. discussed that the rashy area was not bad and overall the patient's skin looks good. no pressure injuries noted. patient was just positioned onto her right side after bath.
--- NOTE | 2022-12-02 12:29 | PCM.CONS.GEN ---
Assessment & Plan Assessment/Plan (1) Acute metabolic encephalopathy: PLAN: JIMMY, lactic acidosis, with recurrent uti. On zosyn. Prior ucxs with ecoli and enterobacter. Will follow, thank you HPI Consult Data Date of Consult: 12/02/22 HPI Narrative Reason for Consultation: recurrent uti HPI Narrative: PILI HU, is a 82 F with h/o stroke, dementia, recurrent uti on macrobid, presented to ED with 4 weeks confusion, lethargy, decreased po intake, weight loss, back pain. Urine here was brown, purulent. Admitted on zosyn after dose of ceftriaxone. Woke up some with narcan in ED. History obtained from family at bedside. Pt unable to provide ROS due to mental status [facility] Medical History Anxiety CVA (cerebral vascular accident) Dementia Depression Paroxysmal atrial fibrillation Medical History unable to obtain Home Medications diltiazem HCl 60 mg tablet 60 mg PO 4X/DAY HTN 12/01/22 [History Last Taken 12/01/22] gabapentin 100 mg capsule 100 mg PO BID PAIN 12/01/22 [History Last Taken 12/01/22] hydrocodone-acetaminophen 5-325mg 5mg-325mg 1 tab PO BID PAIN 12/01/22 [History Last Taken 12/01/22] magnesium hydroxide 400 mg/5 mL oral suspension (Milk of Magnesia) 30 ml PO DAILY PRN Constipation 12/01/22 [History Last Taken 11/27/22] melatonin 3 mg tablet 3 mg PO QHS INSOMNIA 12/01/22 [History Last Taken 11/30/22] metoprolol tartrate 50 mg tablet 50 mg PO BID HTN 12/01/22 [History Last Taken 12/01/22] mirtazapine 7.5 mg tablet 7.5 mg PO QHS APPETITE 12/01/22 [History Last Taken 11/30/22] morphine concentrate 20 mg/mL oral syringe (FOR ORAL USE ONLY) 10 mg PO Q2H PRN PAIN/DYSPNEA 12/01/22 [History Last Taken 12/01/22] nitrofurantoin monohydrate/macrocrystals 100 mg capsule 100 mg PO DAILY PROPHYLAXIS 12/01/22 [History Last Taken 12/01/22] polyethylene glycol 3350 17 gram/dose oral powder 17 g PO DAILY CONSTIPATION 12/01/22 [History Last Taken 12/01/22] sennosides 8.6 mg tablet (Senna Laxative) 8.6 mg PO BID CONSTIPATION 12/01/22 [History Last Taken 12/01/22] sertraline 100 mg tablet (Zoloft) 100 mg PO DAILY DEPRESSION 12/01/22 [History Last Taken 12/01/22] Allergy/AdvReac Type Severity Reaction Status Date / Time lactose [lactose intolerant] AdvReac Diarrhea Verified 12/01/22 14:09 Family History unable to obtain Surgical History unable to obtain Social History (Updated 12/01/22 @ 19:[address] Reina Donis MD) housing: correction Smoking Status: Never smoker alcohol intake: never substance use type: does not use Physical Exam Const Constitutional Narrative: opens eyes briefly to stim General Appearance: lethargic HEENT normocephalic and head/scalp atraumatic Eyes PERRL and EOMs intact bilaterally Neck supple and No nodes Resp normal air movement and clear to auscultation bilaterally Cardio regular rate and regular rhythm GI soft to palpation, non-tender and non-distended Extremity General Extremity: Negative for edema Skin no rashes or lesions noted Neuro CN's II-XII intact bilaterally Lab / Micro Data Attestation: I reviewed the patient's lab results. Result Diagrams: 12/02/22 04:40 12/02/22 04:40 Labs: Laboratory Results - last 24 hr 12/01/22 14:10: WBC 11.7 H, RBC 4.06 L, Hgb 12.4, Hct 38.8, MCV 95.6, MCH 30.5, MCHC 32.0, RDW Std Deviation 49.9 H, RDW Coeff of Lucretia 14.2, Plt Count 245, MPV 10.8, Immature Gran % (Auto) 0.400, Neut % (Auto) 80.1 H, Lymph % (Auto) 9.9 L, [place] % (Auto) 8.8, Eos % (Auto) 0.5, Baso % (Auto) 0.3, Absolute Neuts (auto) 9.4 H, Absolute Lymphs (auto) 1.15, Nucleated RBC % 0 12/01/22 14:10: PT 15.4 H, INR 1.3, APTT 28.5 12/01/22 14:10: Sodium 144, Potassium 4.6, Chloride 112 H, Carbon Dioxide 25.0, Anion Gap 7, BUN 55 H, Creatinine 2.79 H, Estim Creat Clear Calc 15.12, Est GFR (MDRD) Af Amer 21 L, Est GFR (MDRD) Non-Af 17 L, BUN/Creatinine Ratio 19.7, Glucose 138 H, Calcium 9.0, Total Bilirubin 0.60, AST 124 H, ALT 68 H, Alkaline Phosphatase 76, Total Protein 7.6, Albumin 2.7 L, Globulin 4.9 H, Albumin/Globulin Ratio 0.6 L 12/01/22 14:10: Lactic Acid 2.0 12/01/22 14:40: Urine Color Yellow, Urine Clarity Turbid, Urine pH 5.0, Ur Specific [place] 1.025, Urine Protein 30 H, Urine Glucose (UA) Normal, Urine Ketones 5 H, Urine Occult Blood 150 H, Urine Nitrite Positive H, Urine Bilirubin 3 H, Urine Urobilinogen 4 H, Ur Leukocyte Esterase 500 H, Urine RBC 10-25 SEEN, Urine WBC 0-5 SEEN, Ur Squamous Epith Cells 0-5 SEEN, Urine Bacteria 3+, Urine Mucus 0 SEEN 12/01/22 19:10: Lactic Acid 2.8 H* 12/02/22 04:40: WBC 11.8 H, RBC 3.90 L, Hgb 11.4 L, Hct 40.3, MCV 103.3 H D, MCH 29.2, MCHC 28.3 L D, RDW Std Deviation 54.9 H, RDW Coeff of Lucretia 14.5, Plt Count 207, MPV 10.8, Immature Gran % (Auto) 1.000 H, Neut % (Auto) 77.4 H, Lymph % (Auto) 12.3 L, [place] % (Auto) 8.2, Eos % (Auto) 0.8, Baso % (Auto) 0.3, Absolute Neuts (auto) 9.2 H, Absolute Lymphs (auto) 1.46, Nucleated RBC % 0.3 12/02/22 04:40: Sodium 146 H, Potassium 4.3, Chloride 116 H, Carbon Dioxide 23.0, Anion Gap 7, BUN 52 H, Creatinine 2.37 H, Estim Creat Clear Calc 17.80, Est GFR (MDRD) Af Amer 25 L, Est GFR (MDRD) Non-Af 21 L, BUN/Creatinine Ratio 21.9 H, Glucose 95, Calcium 8.1 L, Total Bilirubin 0.40, AST 71 H, ALT 51, Alkaline Phosphatase 74, Total Protein 6.6, Albumin 2.2 L, Globulin 4.4 H, Albumin/Globulin Ratio 0.5 L 12/02/22 04:40: Lactic Acid 1.3 Micro: Microbiology 12/01/22 14:40 Urine Catheter - Catheter Urine Culture - Preliminary GNR lactose product safety coordinator 12/01/22 16:04 Nasal Secretion SARS-CoV-2 & FLU Antigen (Rapid) - Final Radiology Impression Brain CT 12/01/22 14:21 IMPRESSION: Chronic involutional changes of the brain. Electronically Signed: Rajesh Grijalva MD at 15:16 EST , Chest X-Ray 12/01/22 14:55 IMPRESSION: Diffuse bilateral pulmonary infiltrates worse in the right hemithorax. Follow-up recommended. Electronically Signed: Rajesh Grijalva MD at 15:16 EST , Lumbar Spine X-Ray 12/01/22 16:30 IMPRESSION: Degenerative changes of the spine, as detailed above. Electronically Signed: Chris Lam MD at 17:21 EST , Renal Ultrasound 12/01/22 16:53 IMPRESSION: Normal ultrasound of the kidneys. Electronically Signed: Nehemiah Richards MD at 20:30 EST ,
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
--- NOTE | 2022-12-02 15:30 | CASEMGMT ---
Social Work? SW in to pt room to verify advance directives. Pt children confirmed has pt AD and named son,?Jerel Fox, as agent. SW made pt aware documents are not on file and if pt would like to bring these documents in the documents can be dropped off at the Medical Records department. Family voiced understanding.?Informed would bring docs tomorrow. JAGUAR Lord?
--- NOTE | 2022-12-02 18:15 | PCM.PN.HOSP ---
Reason for Visit Reason for Visit: Diagnoses Metabolic encephalopathy (12/01/22) Subjective Subjective Patient was seen and examined today, she has remained lethargic today and is n.p.o. for safety reasons. She remains in atrial fib at this time but her blood pressure remained stable-heart rate is tachycardic at times however. Patient is currently on 6 L via nasal cannula. She is a DNR CC arrest without intubation Objective Data Objective Data Vital Signs: Vital Signs Temp Pulse Resp BP Pulse Ox O2 Del Method O2 Flow Rate 99.1 F 107 H 16 116/63 93 Nasal Cannula 6 12/02/22 15:05 12/02/22 15:05 12/02/22 15:05 12/02/22 15:05 12/02/22 15:05 12/02/22 15:05 12/02/22 15:05 Oxygen Flow Rate (L/min) 6 Oxygen Delivery Method Nasal Cannula Weight: 66.6 kg Body Mass Index (BMI) 22.6 Intake & Output: Intake and Output for Last 24 Hours 11/30/22 12/01/22 12/02/22 23:59 23:59 23:59 Intake Total 2985.25 / 2985.25 1071.25 / 1071.25 Output Total 80 / 80 350 / 350 Balance 2905.25 / 2905.25 721.25 / 721.25 Medical Nutrition Assessment Dietitian: Malnutrition Criteria Met Start: 12/02/22 14:41 Freq: Status: Active Protocol: Document 12/02/22 14:41 RMA (Rec: 12/02/22 14:41 RMA [id number]) Nutrition Malnutrition Evidence of Malnutrition Exists Yes Malnutrition (severe): Chronic Evidenced By Suboptimal Energy Intake ( Severe),Weight Loss (Severe) Clinical Problem Chronic Disease or Condition Related Malnutrition Etiology Severe protein-calorie malnutrition in the context of chronic disease and debility related to inadequate oral intake and likely difficulty chewing/swallowing Signs/Symptoms as evidenced by PO meeting less than 50% estimated nutrition needs x past 1 year and wt loss~22% x past 1 year Status Active Problem Recommendation Dietitian Recommendations/Changes AIR COMPRESSOR MECHANIC evaluation of safety for PO diet and evaluation of consistency/texture needs when able to take PO. Recommend regular diet with consistency as per AIR COMPRESSOR MECHANIC. Pt dislikes ensure plus but, might like ensure clear and ensure pudding per daughter. Add ONS as able to advance diet. Consider TF support if deemed unsafe for PO nutrition in next 24-48 hours. Lab / Micro Data Result Diagrams: 12/02/22 04:40 12/02/22 04:40 Labs: Laboratory Results - last 24 hr 12/01/22 19:10: Lactic Acid 2.8 H* 12/02/22 04:40: WBC 11.8 H, RBC 3.90 L, Hgb 11.4 L, Hct 40.3, MCV 103.3 H D, MCH 29.2, MCHC 28.3 L D, RDW Std Deviation 54.9 H, RDW Coeff of Lucretia 14.5, Plt Count 207, MPV 10.8, Immature Gran % (Auto) 1.000 H, Neut % (Auto) 77.4 H, Lymph % (Auto) 12.3 L, [place] % (Auto) 8.2, Eos % (Auto) 0.8, Baso % (Auto) 0.3, Absolute Neuts (auto) 9.2 H, Absolute Lymphs (auto) 1.46, Nucleated RBC % 0.3 12/02/22 04:40: Sodium 146 H, Potassium 4.3, Chloride 116 H, Carbon Dioxide 23.0, Anion Gap 7, BUN 52 H, Creatinine 2.37 H, Estim Creat Clear Calc 17.80, Est GFR (MDRD) Af Amer 25 L, Est GFR (MDRD) Non-Af 21 L, BUN/Creatinine Ratio 21.9 H, Glucose 95, Calcium 8.1 L, Total Bilirubin 0.40, AST 71 H, ALT 51, Alkaline Phosphatase 74, Total Protein 6.6, Albumin 2.2 L, Globulin 4.4 H, Albumin/Globulin Ratio 0.5 L 12/02/22 04:40: Lactic Acid 1.3 Micro: Microbiology 12/01/22 14:40 Urine Catheter - Catheter Urine Culture - Preliminary GNR lactose assistant counsel 12/01/22 16:04 Nasal Secretion SARS-CoV-2 & FLU Antigen (Rapid) - Final Radiography Diagnostic Testing: Radiology Impression Renal Ultrasound 12/01/22 16:53 IMPRESSION: Normal ultrasound of the kidneys. Electronically Signed: Nehemiah Richards MD at 20:30 EST , Physical Exam Const no apparent distress Constitutional Narrative: Patient is somnolent, she responds to deep painful stimulation but not verbal stimulation by withdrawing General Appearance: cooperative, well kempt and well developed Orientation / Consciousness: lethargic HEENT normocephalic, head/scalp atraumatic and moist oral mucous membranes Eyes PERRL, EOMs intact bilaterally and conjunctivae normal Neck supple, no JVD, thyroid normal and no carotid bruits General: trachea midline Resp normal respiratory effort, no retractions and no use of accessory muscles Resp Narrative: Inspiratory rales are noted over the anterior chest wall bilaterally Auscultation: rales; Negative for rhonchi or wheezes Cardio S1 normal heart sound, S2 normal heart sound, no murmurs, no rub and no gallops Cardio Narrative: Heart rate and rhythm is irregular GI normal to inspection, nondistended, normoactive bowel sounds, soft to palpation, non-tender and non-distended Extremity no clubbing, cyanosis or edema Skin no rashes or lesions noted General Skin Exam: no breakdown Neuro CN's II-XII intact bilaterally Neuro Narrative: Patient is somnolent and responds to painful stimuli Psych Psych Narrative: Patient is somnolent and responds to painful stimuli Assessment & Plan Assessment/Plan (1) Acute metabolic encephalopathy: PLAN: Plan 1. Acute metabolic encephalopathy on a backdrop of severe vascular dementia-continue present care at this point, patient is a DNR CC arrest with no intubation, patient will not be able to intake oral medicines at this time, her atrial fibrillation is not well controlled but her blood pressure remains good at this point. Patient's narcotics will be held, there was a possibility that the patient's lethargy was due to narcotic administration. #2 acute cystitis-patient is currently on IV Zosyn, infectious diseases will see the patient in consultation #3 acute pneumonia-suspected to be secondary to aspiration, patient will continue on IV Zosyn #4 acute hypoxia secondary to #3-patient is currently on supplemental oxygen #5 acute kidney injury-continue IV fluid administration #6 chronic atrial fibrillation-patient will not be able to take oral rate limiting medications at this time, I do not think it is imperative that the patient be on rate limiting medications at this time, she will be reevaluated tomorrow for safety of oral intake. #7 chronic dementia-complicates care, medical recovery, management, and prognosis Total clinical time spent by myself addressing the patient's medical issues, reviewing all the data, and collaborating with the patient's care team: 36 minutes Charges/Coding Visit Charges Inpatient E&M: 94233 Subs Hosp L2
[2022-12-02] MEDS: Lactated Ringers 1,000 ML 100 ML IV (18:26)
[2022-12-02] MEDS: Acetaminophen 650 MG Suppository RC (20:29)
[2022-12-02] MEDS: Menthol/Lanolin/Calamine/Znox 113 GM Tube 1 APPLIC TOPICAL (21:35)
[2022-12-02] MEDS: Nystatin Powder 15gm Bottle 1 APPLIC TOPICAL (21:36)
[2022-12-03] VITALS (17 sets, daily range): BP systolic 95–140; BP diastolic 60–78; PULSE 89–153; RESP 16–26; TEMP 36.5–37.1; O2SAT 84–98
[2022-12-03] MEDS: Lactated Ringers 1,000 ML 100 ML IV ×2 (03:46→13:55)
[2022-12-03] MEDS: Heparin Injection (Vial) 5,000 UNIT/ML VIAL 5000 UNIT SC ×3 (06:27→21:44)
[2022-12-03] MEDS: Metoprolol Tartrate 50 MG Tablet 75 MG PO (08:58)
[2022-12-03] MEDS: Menthol/Lanolin/Calamine/Znox 113 GM Tube 1 APPLIC TOPICAL ×2 (08:59→21:45)
[2022-12-03] MEDS: dilTIAZem 60 MG Tablet PO ×4 (08:59→21:43)
[2022-12-03] MEDS: Lidocaine 5% Patch 2 PATCH TOPICAL (08:59)
[2022-12-03] MEDS: Sertraline 100 MG Tablet PO (09:00)
[2022-12-03] MEDS: Nystatin Powder 15gm Bottle 1 APPLIC TOPICAL ×2 (09:00→21:46)
[2022-12-03] MEDS: Nitrofurantoin Macrocrystals 100 MG Capsule PO (10:13)
--- NOTE | 2022-12-03 11:02 | PN.HOSP_ITS ---
Reason for Visit Reason for Visit: Diagnoses Metabolic encephalopathy (12/01/22) Subjective Subjective Patient was seen and examined today, she is more alert and was able to take oral pills today. Patient's heart rate has been tachycardic and I have elected to place her on metoprolol, I gave her 1 dose this morning to see if it would affect her rate. Objective Data Objective Data Vital Signs: Vital Signs Temp Pulse Resp BP Pulse Ox O2 Del Method O2 Flow Rate 98.3 F 120 H 18 95/60 90 High Flow 10 12/03/22 10:15 12/03/22 10:15 12/03/22 10:15 12/03/22 10:15 12/03/22 10:15 12/03/22 10:15 12/03/22 10:15 Oxygen Flow Rate (L/min) 10 Oxygen Delivery Method High Flow Weight: 104.9 kg Body Mass Index (BMI) 22.6 Intake & Output: Intake and Output for Last 24 Hours 12/01/22 12/02/22 12/03/22 23:59 23:59 23:59 Intake Total 2985.25 / 2985.25 1897.25 / 1897.25 983.33 / 983.33 Output Total 80 / 80 550 / 650 300 / 300 Balance 2905.25 / 2905.25 1347.25 / 1247.25 683.33 / 683.33 Medical Nutrition Assessment Dietitian: Malnutrition Criteria Met Start: 12/02/22 14:41 Freq: Status: Active Protocol: Document 12/02/22 14:41 RMA (Rec: 12/02/22 14:41 RMA [id number]) Nutrition Malnutrition Evidence of Malnutrition Exists Yes Malnutrition (severe): Chronic Evidenced By Suboptimal Energy Intake ( Severe),Weight Loss (Severe) Clinical Problem Chronic Disease or Condition Related Malnutrition Etiology Severe protein-calorie malnutrition in the context of chronic disease and debility related to inadequate oral intake and likely difficulty chewing/swallowing Signs/Symptoms as evidenced by PO meeting less than 50% estimated nutrition needs x past 1 year and wt loss~22% x past 1 year Status Active Problem Recommendation Dietitian Recommendations/Changes SEASONAL SALES ASSOCIATE evaluation of safety for PO diet and evaluation of consistency/texture needs when able to take PO. Recommend regular diet with consistency as per SEASONAL SALES ASSOCIATE. Pt dislikes ensure plus but, might like ensure clear and ensure pudding per daughter. Add ONS as able to advance diet. Consider TF support if deemed unsafe for PO nutrition in next 24-48 hours. Lab / Micro Data Result Diagrams: 12/02/22 04:40 12/02/22 04:40 Micro: Microbiology 12/01/22 14:40 Urine Catheter - Catheter Urine Culture - Final Escherichia coli 12/01/22 16:04 Nasal Secretion SARS-CoV-2 & FLU Antigen (Rapid) - Final Physical Exam Const alert and no apparent distress General Appearance: cooperative, well kempt and well developed HEENT normocephalic, head/scalp atraumatic and moist oral mucous membranes Eyes PERRL, EOMs intact bilaterally and conjunctivae normal Neck supple, no JVD, thyroid normal and no carotid bruits General: trachea midline Resp normal respiratory effort, no retractions and no use of accessory muscles Resp Narrative: Inspiratory rales over the anterior lung wesley bilaterally Auscultation: rales; Negative for rhonchi or wheezes Cardio S1 normal heart sound, S2 normal heart sound, no murmurs, no rub and no gallops Cardio Narrative: Heart rate and rhythm is irregular GI normal to inspection, nondistended, normoactive bowel sounds, soft to palpation, non-tender and non-distended Extremity normal to inspection and no clubbing, cyanosis or edema Skin no rashes or lesions noted General Skin Exam: no breakdown Neuro CN's II-XII intact bilaterally Neuro Narrative: Patient is awake but mildly lethargic Sensorium / Orientation: awake Psych Psych Narrative: Patient is awake, she is confused, and mildly lethargic Assessment & Plan Assessment/Plan (1) Acute metabolic encephalopathy: PLAN: Plan 1. Acute metabolic encephalopathy on a backdrop of severe vascular dementia- continue present care at this point, patient is a DNR CC arrest with no intub ation, patient is more alert today, she will be reevaluated this afternoon for increasing her oral intake. #2 acute cystitis-patient is currently on IV Zosyn, infectious diseases is participating in her care #3 acute pneumonia-suspected to be secondary to aspiration, patient will continue on IV Zosyn #4 acute hypoxia secondary to #3-patient is currently on supplemental oxygen- today she is on 10 L/min #5 acute kidney injury-continue IV fluid administration #6 chronic atrial fibrillation-I gave the patient p.o. metoprolol today, we will see how this affects her heart rate. #7 chronic dementia-complicates care, medical recovery, management, and prognosis Total clinical time spent by myself addressing the patient's medical issues, reviewing all the data, and collaborating with the patient's care team: 37 minutes Charges/Coding Visit Charges Inpatient E&M: 42727 Subs Hosp L2
--- NOTE | 2022-12-03 13:04 | CASEMGMT ---
Addendum entered by Bonnie Garcia 12/03/22 14:09: [facility] informed SW that no bed will be opening tomorrow. SW called pt son and MORENAOA Jerel to inform that first two choices unable to acet due to no open beds. SW updated that referral for pt had been sent to [facility]. Jerel voiced understanding. Will continue to follow for response from [facility]. Original Note: Social Work [facility] reached out with news that they may possibly have a bed open up tomorrow but they cannot guarantee for sure this will happen. Family preference is [facility] so SW asked [facility] to give update tomorrow but will also send referral to next choice in the event that [facility] cannot take this pt. SW sent referral to [facility]. PLAN: LTC at [facility], pending acceptance JAGUAR Lord
--- NOTE | 2022-12-03 13:25 | PCM.PN.ID ---
Physical Exam Narrative Awake this afternoon, not answering questions Const Constitutional Narrative: awake, tracking Resp normal air movement and clear to auscultation bilaterally Cardio regular rate and regular rhythm GI soft to palpation, non-tender and non-distended Skin no rashes or lesions noted ID ID: Route of nutrition/ use of supplements: [] Nutritional Intake: [] IV Site: [] Ocampo Catheter: [] Assessment & Plan Assessment/Plan (1) Acute metabolic encephalopathy: PLAN: JIMMY, lactic acidosis, with recurrent uti. On zosyn. Prior ucxs with ecoli and enterobacter. Ucx now with 11-25k ecoli. Will narrow to cefazolin. JIMMY and mental status improved. Will follow
[2022-12-03] MEDS: Cefazolin 1 GM/50 ML BAG IV ×2 (13:37→21:45)
--- NOTE | 2022-12-03 15:11 | CASEMGMT ---
Social Work SNFs requesting therapy notes for pt. RN RAISSA White assisted SW with putting orders in for this. JAGUAR Lord
[2022-12-03] MEDS: Mirtazapine 15 MG Tablet 7.5 MG PO (21:43)
[2022-12-03] MEDS: Senna Tablet 1 TABLET PO (21:43)
[2022-12-03] MEDS: Metoprolol Tartrate 50 MG Tablet PO (21:44)
[2022-12-04] VITALS (10 sets, daily range): BP systolic 99–113; BP diastolic 56–75; PULSE 83–129; RESP 18–28; TEMP 36.8–37; O2SAT 91–96
[2022-12-04] MEDS: Heparin Injection (Vial) 5,000 UNIT/ML VIAL 5000 UNIT SC ×2 (05:51→14:20)
[2022-12-04] MEDS: Lidocaine 5% Patch 2 PATCH TOPICAL (08:38)
[2022-12-04] MEDS: Menthol/Lanolin/Calamine/Znox 113 GM Tube 1 APPLIC TOPICAL (08:39)
[2022-12-04] MEDS: Nystatin Powder 15gm Bottle 1 APPLIC TOPICAL (08:40)
[2022-12-04] MEDS: 0.9% Saline Lock 10 ML Syringe IV (09:59)
[2022-12-04] MEDS: Cefazolin 1 GM/50 ML BAG IV (09:59)
--- NOTE | 2022-12-04 10:21 | PCM.PN.ID ---
Physical Exam Narrative Sleeping this AM, no fever Const no apparent distress Resp normal air movement and clear to auscultation bilaterally Cardio regular rate and regular rhythm GI soft to palpation, non-tender and non-distended Skin no rashes or lesions noted ID ID: Route of nutrition/ use of supplements: [] Nutritional Intake: [] IV Site: [] Ocampo Catheter: [] Assessment & Plan Assessment/Plan (1) Acute metabolic encephalopathy: PLAN: JIMMY, lactic acidosis, with recurrent uti. On cefazolin. Prior ucxs with ecoli and enterobacter. Ucx now with 11-25k ecoli. JIMMY and mental status improved. Will check bmp this AM. Plan on po amox at discharge. If renal function returns to baseline, plan will be to stop macrobid and instead use methenamine for assisted proph. Will follow
[2022-12-04 10:40] LABS: Anion Gap 9 (5-15); BUN 44 mg/dL (7-18); BUN/Creat Ratio 34.9 RATIO (10-20); Calcium,Total 8.7 mg/dL (8.5-10.1); Chloride 118 mmol/L (98-107); Creatinine, Serum 1.26 mg/dL (0.55-1.02); EST Glomerular Filtration Rate 43 mL/min (>60); Est Glom Filt Rate - Afr Amer 52 mL/min (>60); Estimated Creatinine Clearance 33.48 ml/min; Glucose 113 mg/dL (74-106); Potassium 4.2 mmol/L (3.5-5.1); Sodium Level 148 mmol/L (136-145)
--- NOTE | 2022-12-04 11:32 | CASEMGMT ---
Social Work Pt with increased oxygen needs today. [facility] updated and continue to be interested in accepting pt, but will need to reevaluate once oxygen needs improve. [facility] can [facility] a pt requiring a max of 5-7 L of O2. SW to continue to follow for discharge planning. Plan: [facility], pending acceptance JAGUAR Moreno
--- NOTE | 2022-12-04 13:04 | CASEMGMT ---
Addendum entered by Amarilis Agudelo 12/04/22 13:44: Return call from Fabienne at [facility]. Meeting set up between [facility] and pt son at 2:30 in pt room. Nursing updated. JAGUAR Snider Original Note: Social Work Per physician, Pt is appropriate for the Inpatient unit at [facility]. Physician states he contacted pt's son/HCPOA Jerel and discussed this and Jerel is agreeable to referral to [facility]. [facility] call to [facility] and referral made to Fabienne. [facility] to reach out to Jerel to set appointment. Clinicals faxed. JAGUAR Snider
--- NOTE | 2022-12-04 16:09 | CASEMGMT ---
Social Work Per [facility], pt family has signed papers with [facility]. Hospice nurse currently here and assessing pt for IPU. JAGUAR Snider
--- NOTE | 2022-12-04 18:22 | DS.PCM_ITS ---
Providers Date of Admission: 12/01/22 Date of Discharge: 12/04/22 Primary Care Physician: Dr. Katlin Brar MD Consultations 12/01/22 16:53 Consult: Infectious Disease Routine Consulting Provider: Jerel Rosenberg Reason for Consult: Recurrent UTI EMERGENT Consult: No Notified: Yes Date Notified: 12/01/22 Time Notified: 17:00 Method of Notification: Text Reason For Visit: AMS/UTI Diagnosis Discharge Diagnosis (1) Acute metabolic encephalopathy: Status: Acute Code(s): G93.41 - Metabolic encephalopathy Plan 1. Acute metabolic encephalopathy on a backdrop of severe vascular dementia- continue present care at this point, patient is a DNR CC arrest with no intubation, patient is more alert today, she will be reevaluated this afternoon for increasing her oral intake. #2 acute cystitis-patient is currently on IV Zosyn, infectious diseases is par ticipating in her care #3 acute pneumonia-suspected to be secondary to aspiration, patient will con tinue on IV Zosyn #4 acute hypoxic respiratory failure secondary to #3-patient is currently on supplemental oxygen-today she is on 10 L/min #5 acute kidney injury-continue IV fluid administration #6 chronic atrial fibrillation-I gave the patient p.o. metoprolol today, we will see how this affects her heart rate. #7 chronic dementia-complicates care, medical recovery, management, and prognosis #8 chronic severe protein and caloric malnutrition in the context of chronic disease and debility related to inadequate oral intake and likely difficulty with chewing/swallowing as evidenced by p.o. meeting less than 50% of estimated nutritional needs x1 year and weight loss of 22% over the past year-Ensure clear and Ensure pudding was used to supplement the patient's diet Total clinical time spent by myself addressing the patient's medical issues, reviewing all the data, and collaborating with the patient's care team: 37 minutes Medications at Discharge Home Medications diltiazem HCl 60 mg tablet 60 mg PO 4X/DAY HTN 12/01/22 gabapentin 100 mg capsule 100 mg PO BID PAIN 12/01/22 hydrocodone-acetaminophen 5-325mg 5mg-325mg 1 tab PO BID PAIN 12/01/22 magnesium hydroxide 400 mg/5 mL oral suspension (Milk of Magnesia) 30 ml PO DAILY PRN Constipation 12/01/22 melatonin 3 mg tablet 3 mg PO QHS INSOMNIA 12/01/22 metoprolol tartrate 50 mg tablet 50 mg PO BID HTN 12/01/22 mirtazapine 7.5 mg tablet 7.5 mg PO QHS APPETITE 12/01/22 morphine concentrate 20 mg/mL oral syringe (FOR ORAL USE ONLY) 10 mg PO Q2H PRN PAIN/DYSPNEA 12/01/22 nitrofurantoin monohydrate/macrocrystals 100 mg capsule 100 mg PO DAILY PROPHYLAXIS 12/01/22 polyethylene glycol 3350 17 gram/dose oral powder 17 g PO DAILY CONSTIPATION 12/01/22 sennosides 8.6 mg tablet (Senna Laxative) 8.6 mg PO BID CONSTIPATION 12/01/22 sertraline 100 mg tablet (Zoloft) 100 mg PO DAILY DEPRESSION 12/01/22 Hospital Course Operations None Procedures None Summary of Care Provided Minutes Spent on Discharge: 32 Hospital Course: 82-year-old white female was seen in the emergency room at [facility] after being brought in from the long-term with altered mental status times several weeks. Family stated the patient had been lethargic at the long-term over the last 3 weeks, hospice was consulted at the long-term for medical management according to the family. Patient was found to be obtunded and was brought to the emergency room for evaluation. Patient had been getting [place] twice a day for her back pain. Patient was unresponsive on initial presentation to the emergency room, she was given 1 mg of Narcan and woke up and was interactive but she easily went back to sleep. Ocampo catheter was placed and it returned purulent brownish urine, patient received IV fluids and was started on IV Rocephin, patient's initial blood pressure was low, chest x-ray showed diffuse bilateral pulmonary infiltrates worse on the right, BUN was elevated to 55 creatinine was 2.79. Patient requires supplemental oxygen to maintain her pulse ox. She was admitted to [place] [id number] and seen in consultation by infectious diseases, her respiratory status however declined and given the patient's severe comorbidities including dementia, family was contacted and consented to hospice consultation in the hospital. I talked with the patient's son and [id number] in her room before she was transported to the inpatient hospice. Patient was excepted into the inpatient unit at [facility]. On 12/04/2022, patient was seen and examined: General Appearance: cooperative, well kempt and well developed, patient was awake, confused, and mildly lethargic, she was on high flow oxygen. HEENT normocephalic, head/scalp atraumatic and moist oral mucous membranes Eyes PERRL, EOMs intact bilaterally and conjunctivae normal Neck supple, no JVD, thyroid normal and no carotid bruits General: trachea midline Resp normal respiratory effort, no retractions and no use of accessory muscles Resp Narrative: Inspiratory rales over the anterior lung wesley bilaterally Auscultation: rales; Negative for rhonchi or wheezes Cardio S1 normal heart sound, S2 normal heart sound, no murmurs, no rub and no gallops Cardio Narrative: Heart rate and rhythm is irregular GI normal to inspection, nondistended, normoactive bowel sounds, soft to palpation, non-tender and non-distended Extremity normal to inspection and no clubbing, cyanosis or edema Skin no rashes or lesions noted General Skin Exam: no breakdown Neuro CN's II-XII intact bilaterally Neuro Narrative: Patient is awake but mildly lethargic Sensorium / Orientation: awake Psych Psych Narrative: Patient is awake, she is confused, and mildly lethargic On 12/04/2022, patient was transported to inpatient hospice in poor condition but stable for transport. Medical Records Data Medical Nutrition Assessment Dietitian: Malnutrition Criteria Met Start: 12/02/22 14:41 Freq: Status: Active Protocol: Document 12/02/22 14:41 RMA (Rec: 12/02/22 14:41 RMA [id number]) Nutrition Malnutrition Evidence of Malnutrition Exists Yes Malnutrition (severe): Chronic Evidenced By Suboptimal Energy Intake ( Severe),Weight Loss (Severe) Clinical Problem Chronic Disease or Condition Related Malnutrition Etiology Severe protein-calorie malnutrition in the context of chronic disease and debility related to inadequate oral intake and likely difficulty chewing/swallowing Signs/Symptoms as evidenced by PO meeting less than 50% estimated nutrition needs x past 1 year and wt loss~22% x past 1 year Status Active Problem Recommendation Dietitian Recommendations/Changes AIR CONDITIONING SUPERVISOR evaluation of safety for PO diet and evaluation of consistency/texture needs when able to take PO. Recommend regular diet with consistency as per AIR CONDITIONING SUPERVISOR. Pt dislikes ensure plus but, might like ensure clear and ensure pudding per daughter. Add ONS as able to advance diet. Consider TF support if deemed unsafe for PO nutrition in next 24-48 hours. Weight / BMI Weight Weight: 104.9 kg Body Mass Index (BMI) 22.6 ABG / Lab / Microbiology Data Result Diagrams: 12/02/22 04:40 12/04/22 09:56 Laboratory: Laboratory Results - last 24 hr 12/04/22 09:56: Sodium 148 H, Potassium 4.2, Chloride 118 H, Carbon Dioxide 21.0, Anion Gap 9, BUN 44 H, Creatinine 1.26 H, Estim Creat Clear Calc 33.48, Est GFR (MDRD) Af Amer 52 L, Est GFR (MDRD) Non-Af 43 L, BUN/Creatinine Ratio 34.9 H, Glucose 113 H, Calcium 8.7 Microbiology: Microbiology 12/01/22 14:40 Urine Catheter - Catheter Urine Culture - Final Escherichia coli 12/01/22 16:04 Nasal Secretion SARS-CoV-2 & FLU Antigen (Rapid) - Final Meaningful Use Info Meaningful Use Diagnoses (Choose all that apply): None applicable Discharge Plan Admission Admit Date/Time: 12/01/22 15:32 Attending Provider: Murtaza Zhao Primary Care Provider: Katlin Brar Consulting Providers: Jerel Rosenberg ; Reina Donis Discharge Orders/Prescriptions Prescriptions: No Action sennosides [Senna Laxative] 8.6 mg Tablet 8.6 mg PO BID hydrocodone-acetaminophen 5-325 mg tablet 1 tab PO BID sertraline [Zoloft] 100 mg Tablet 100 mg PO DAILY melatonin 3 mg Tablet 3 mg PO QHS magnesium hydroxide [Milk of Magnesia] 400 mg/5 mL Suspension 30 ml PO DAILY PRN (Reason: Constipation) metoprolol tartrate 50 mg tablet 50 mg PO BID gabapentin 100 mg capsule 100 mg PO BID polyethylene glycol 3350 17 gram/dose Powder 17 g PO DAILY diltiazem HCl 60 mg tablet 60 mg PO 4X/DAY mirtazapine 7.5 mg tablet 7.5 mg PO QHS nitrofurantoin monohyd/m-cryst 100 mg capsule 100 mg PO DAILY morphine concentrate 20 mg/mL Syringe 10 mg PO Q2H PRN (Reason: PAIN/DYSPNEA) Referrals / Follow Up: Katlin Brar MD [Primary Care Provider] - Disposition Disposition (needs filled in before D/C Order can be placed): Inpatient Rehab Unit/Facility Charges/Coding Visit Charges Inpatient E&M: 26870 Disch Hosp >30min
--- NOTE | 2022-12-05 08:47 | CASEMGMT ---
Social Work SW and [place] updated that pt has transferred to [facility] and will not be coming to their facilities at this time. JAGUAR Moreno
== END 2022-12-04 22:58 | DRG 689 ==
LOC: ED 15:53 → MS3 16:17
PROVIDERS: Family Medicine; Internal Medicine Infectious Disease; Admitting Provider Internal Medicine; Emergency Provider Student in an Organized Health Care Education/Training Program; PCP Internal Medicine; Visit Provider Internal Medicine
DX: N30.00 Acute cystitis without hematuria (principal); J69.0 Pneumonitis due to inhalation of food and vomit; J96.01 Acute respiratory failure with hypoxia; G93.41 Metabolic encephalopathy; E43 Unspecified severe protein-calorie malnutrition; N17.9 Acute kidney failure, unspecified; I48.20 Chronic atrial fibrillation, unspecified; F01.518 Vascular dementia, unspecified severity, with other behavioral disturbance; F01.C0 Vascular dementia, severe, without behavioral disturbance, psychotic disturbance, mood disturbance, and anxiety; I95.9 Hypotension, unspecified; M54.50 Low back pain, unspecified; Z51.5 Encounter for palliative care; R79.1 Abnormal coagulation profile; Z66 Do not resuscitate; B96.20 Unspecified Escherichia coli [E. coli] as the cause of diseases classified elsewhere; Z68.21 Body mass index [BMI] 21.0-21.9, adult
CPT/HCPCS: 36415; 51702; 70450; 71045; 72100; 76770; 80048; 80053; 81001; 83605; 85025; 85610; 85730; 87040; 87077; 87086; 87088; 87186; 87428; 92610; 93005; 94660; 97162; 97166; 97802; 99285; J7030; J7050; J7120; A4216